=== PATIENT | female | born 1965 | race Caucasian/White ===

== ENCOUNTER 2016-09-01 07:13 | Day surgery (SDC) | payer BC ==
[2016-09-01] MEDS ORDERED: LIDOCAINE HCL/PF 1% SDV 5ML VIAL ONE (07:45)
[2016-09-01] MEDS ORDERED: PROPOFOL 20 ML ONE ×3 (07:45)
[2016-09-01 08:07] VITALS: BMI 34.8
[2016-09-01 08:40] VITALS: TEMP 98.5
[2016-09-01 10:10] VITALS: BP 156/79; PULSE 92
== END 2016-09-01 09:45 | disposition home or self-care (01) ==
LOC: JASU-ENDO 07:13
PROVIDERS: ATTEND Internal Medicine Gastroenterology
PROC: 0DJD8ZZ Inspection of Lower Intestinal Tract, Via Natural or Artificial Opening Endoscopic (ICD-10-PCS; principal; 2016-09-01 08:00)
DX: Z12.11 Encounter for screening for malignant neoplasm of colon (principal); Z80.0 Family history of malignant neoplasm of digestive organs; K64.8 Other hemorrhoids
CPT/HCPCS: 84703

== ENCOUNTER 2024-06-26 04:55 | Day surgery (SDC) | payer OTHER ==
[2024-06-14 16:18] VITALS: BMI 38.6
[2024-06-26 08:31] VITALS: RESP 20; TEMP 98
[2024-06-26 09:01] VITALS: BP 143/83; PULSE 75
== END 2024-06-26 09:07 | disposition home or self-care (01) ==
LOC: JASU-ENDO 04:55
PROVIDERS: ATTEND Internal Medicine Gastroenterology
PROC: 0DBC8ZX Excision of Ileocecal Valve, Via Natural or Artificial Opening Endoscopic, Diagnostic (ICD-10-PCS; principal; 2024-06-26 08:00)
DX: Z12.11 Encounter for screening for malignant neoplasm of colon (principal); Z80.0 Family history of malignant neoplasm of digestive organs; D17.5 Benign lipomatous neoplasm of intra-abdominal organs
CPT/HCPCS: 88305-TC